=== PATIENT | female | born 2005 | race Caucasian/White ===

== ENCOUNTER 2023-06-08 05:02 | Emergency (ER) | payer MEDICAID ==
[~2023-06-08] VITALS: Ht 170.2 cm; Wt 61.0 kg
[2023-06-08] MEDS ORDERED: LORAZEPAM 2MG/ML CPJ IM STA ×2 (05:10→11:25)
[2023-06-08] MEDS ORDERED: OLANZAPINE 10 MG/VIAL IM ONE ×2 (05:15→11:30)
[2023-06-08 05:52] LABS: BASOPHILS % 0.3 % (0.0-2.0); DIFFERENTIAL COMMENT 0; EOSINOPHILS % 1.3 % (0.0-5.0); HEMATOCRIT. 37.8 % (36.0-48.0); HEMOGLOBIN. 12.2 g/dL (12.0-16.0); LYMPHOCYTES % 8.8 % (20.0-50.0); MEAN CORPUSCULAR HEMOGLOBIN 25.5 pg (28.0-32.0); MEAN CORPUSCULAR HGB CONC 32.4 g/dL (31.0-37.0); MEAN CORPUSCULAR VOLUME 78.7 fL (81.0-99.0); MEAN PLATELET VOLUME 8.6 fl (7.4-10.4); MONOCYTES % 3.1 % (2.0-8.0); NEUTROPHILS % 86.5 % (40.0-76.0); PLATELET 269 x1000/uL (130-400); RED CELL DISTRIBUTION WIDTH 17.5 % (11.6-14.6); WHITE BLOOD COUNT 9.6 x1000/uL (4.5-11.0)
[2023-06-08 06:27] LABS: CHLORIDE 108 mEq/L (98-107); INDEX HEMOLYSI 1 (1-3); INDEX ICTERIC 1 (1-4); INDEX LIPEMIC 1 (1-3); POTASSIUM 3.7 mEq/L (3.5-5.1); SODIUM 137 mEq/L (136-145)
[2023-06-08 06:38] LABS: ALANINE AMINOTRANSFERASE 38 IU/L (13-61); ALBUMIN 4.8 g/dL (3.4-5.0); ASPARTATE AMINOTRANSFERASE 43 IU/L (15-37); BILIRUBIN TOTAL 0.3 mg/dL (0.1-1.0); CALCIUM 9.2 mg/dL (8.5-10.1); CARBON DIOXIDE 14 mEq/L (21-32); CREATININE 0.6 mg/dL (0.6-1.3); ETHANOL BLOOD < 10 mg/dL (<10); GLUCOSE 122 mg/dL (70-105); UREA NITROGEN BLOOD 5 mg/dL (7-21)
[2023-06-08 08:49] LABS: HCG SCREEN NEGATIVE
[2023-06-08 11:50] LABS: CLARITY URINE CLEAR (CLEAR); COLOR URINE YELLOW (YELLOW); GLUCOSE URINE NEGATIVE (NEGATIVE); KETONES URINE TRACE (NEGATIVE); LEUKOCYTE ESTERASE URINE NEGATIVE (NEGATIVE); NITRITE URINE NEGATIVE (NEGATIVE); OCCULT BLOOD URINE NEGATIVE (NEGATIVE); PROTEIN URINE 1+ (NEGATIVE); SPECIFIC GRAVITY URINE 1.018 (1.005-1.030); UROBILINOGEN URINE 0.2 E.U./dL (0.2-1.0)
[2023-06-08 11:52] LABS: YEAST URINE NONE SEEN
[2023-06-08 12:35] LABS: BACTERIA URINE 1+; SQUAMOUS EPITHELIAL CELL URINE FEW /lpf (RARE/1+); WBC URINE 15-25 /hpf (0-2)
[2023-06-08 13:09] LABS: *AMPHETAMINES SCREEN URINE NEGATIVE (NEGATIVE); *BARBITURATES SCREEN URINE NEGATIVE (NEGATIVE); *BENZODIAZEPINES SCREEN URINE NEGATIVE (NEGATIVE); *COCAINE SCREEN URINE NEGATIVE (NEGATIVE); ECSTASY MDMA SCREEN URINE NEGATIVE (NEGATIVE); OPIATES URINE SCREEN NEGATIVE (NEGATIVE); PHENCYCLIDINE URINE SCREEN NEGATIVE (NEGATIVE)
[2023-06-08 13:17] LABS: CANNABINOID URINE SCREEN PRESUMTIVE POSITIVE (NEGATIVE)
[2023-06-08] MEDS ORDERED: LORAZEPAM 2MG/ML CPJ IM NR (15:54)
[2023-06-08] MEDS ORDERED: OLANZAPINE 10 MG/VIAL IM NR (15:56)
[2023-06-08] MEDS: NITROFURANTOIN 100MG M/M CAPSULE PO SCH (21:24)
[2023-06-08 22:00] VITALS: O2SAT 99
[2023-06-09] MEDS: NITROFURANTOIN 100MG M/M CAPSULE PO SCH (09:00)
[2023-06-09 10:11] VITALS: BP 119/66; PULSE 78; RESP 18; TEMP 98.6
== END 2023-06-09 12:22 ==
LOC: ER 05:02
DX: T39.312A Poisoning by propionic acid derivatives, intentional self-harm, initial encounter (principal); Z20.822 Contact with and (suspected) exposure to COVID-19; X58.XXXA Exposure to other specified factors, initial encounter
CPT/HCPCS: 80053; 80305; 81003; 80307; 80329; 80320; 84703; 85025; 87086; 36415; 96372; 99291; 87426; J3490; J2060; C9803; G0480